=== PATIENT | female | born 1970 | race Caucasian/White ===

== ENCOUNTER 2023-09-04 08:49 | Day surgery (SDC) | payer BC, SELFPAY ==
--- NOTE | 2023-09-04 | US_ITS ---
[address] [address] Patient Name: TASIA PEREA MRN: [id number] date: 1970 Sex: F Assigned Patient Location: US Current Patient Location: US Accession/Order Number: [id number] Exam Date: 09/04/2023 09:00 Report Date: 09/04/2023 10:15 At the request of: QUINTEN MEANS Procedure: US biopsy FNA add lesion EXAMINATION: US biopsy thyroid HISTORY: Thyroid Nodule COMPARISON: Ultrasound thyroid 07/24/2023 TECHNIQUE: After obtaining informed consent, ultrasound-guided fine needle aspiration was performed in the usual sterile manner. FINDINGS: IMAGING: Ultrasound. BIOPSY NEEDLE: 25-gauge; 3 separate passes within both nodules. LOCATION: Right lobe inferior pole heterogeneous 2.5 cm nodule. Left lobe inferior pole heterogeneous 3.2 cm nodule. SPECIMEN TYPE: Cellular tissue. LOCAL ANESTHETIC: Buffered Xylocaine. COMPLICATIONS: None. LABORATORY: Prepared slide smears and washings for cell block evaluation. OTHER: Negative. PATHOLOGY: Pending. An addendum will be added when results are available. US/US biopsy FNA add lesion IMPRESSION: 1. Uneventful ultrasound guided fine needle aspiration (FNA). 2. Pathology results are pending. Electronically authenticated by: LAURA DIAZ Date: 09/04/2023 10:15
--- NOTE | 2023-09-04 08:55 | US_ITS ---
[address] [address] Patient Name: TASIA PEREA MRN: [id number] date: 1970 Sex: F Assigned Patient Location: US Current Patient Location: US Accession/Order Number: [id number] Exam Date: 09/04/2023 09:00 Report Date: 09/04/2023 10:15 At the request of: QUINTEN MEANS Procedure: US biopsy thyroid EXAMINATION: US biopsy thyroid HISTORY: Thyroid Nodule COMPARISON: Ultrasound thyroid 07/24/2023 TECHNIQUE: After obtaining informed consent, ultrasound-guided fine needle aspiration was performed in the usual sterile manner. FINDINGS: IMAGING: Ultrasound. BIOPSY NEEDLE: 25-gauge; 3 separate passes within both nodules. LOCATION: Right lobe inferior pole heterogeneous 2.5 cm nodule. Left lobe inferior pole heterogeneous 3.2 cm nodule. SPECIMEN TYPE: Cellular tissue. LOCAL ANESTHETIC: Buffered Xylocaine. COMPLICATIONS: None. LABORATORY: Prepared slide smears and washings for cell block evaluation. OTHER: Negative. PATHOLOGY: Pending. An addendum will be added when results are available. US/US biopsy thyroid IMPRESSION: 1. Uneventful ultrasound guided fine needle aspiration (FNA). 2. Pathology results are pending. Electronically authenticated by: LAURA DIAZ Date: 09/04/2023 10:15
[2023-09-04 09:00] VITALS: BP 152/78; PULSE 66; O2SAT 100
[2023-09-04] MEDS: LIDOCAINE HCL 10 ML, SODIUM BICARBONATE 1 MEQ INJ (09:40)
--- NOTE | 2023-09-04 15:17 | SUR.PREOP ---
09/03/23 Pt made aware of procedure, date, time, and prep.
== END 2023-09-04 10:10 | disposition home or self-care (01) ==
LOC: US 08:49
PROVIDERS: Radiology Diagnostic Radiology; Family Provider Family Medicine; Visit Provider Otolaryngology
DX: E04.1 Nontoxic single thyroid nodule (principal)
CPT/HCPCS: 10005; 10006; 88173